=== PATIENT | female | born 1935 | race Hispanic/Latino ===

== ENCOUNTER 2020-05-28 14:45 | Outpatient (CLI) | payer MEDICARE ==
--- NOTE | 2020-05-28 16:16 | Mammography Report ---
LEFT DIAGNOSTIC MAMMOGRAM INDICATION: Status post biopsy of left subareolar breast mass. COMPARISON: Outside imaging performed 05/13/2019. FINDINGS: Left breast CC and LM projection mammograms were obtained. These demonstrate accurate location of a U -shaped biopsy marker within a slightly superior subareolar breast mass which is decreased in size st atus post biopsy and aspiration. IMPRESSION: Appropriate location of U shaped biopsy marker within the left slightly superior subareolar breast st atus post ultrasound-guided core biopsy and aspiration. BI-RADS Category 4: Suspicious for Malignancy. Signer Name: Fabien Krishnan MD Signed: 05/28/2020 4:12 PM Workstation Name: [id number]
--- NOTE | 2020-05-30 12:23 | Ultrasound Report ---
ULTRASOUND-GUIDED CORE NEEDLE BIOPSY LEFT BREAST WITH CLIP PLACEMENT INDICATION: Left breast lesion is noted on outside imaging COMPARISON: Outside imaging performed 05/13/2019. FINDINGS: NOTE: The outside imaging noted two separate areas in the left breast at the 12:00 and 8:00 subareola r location. On current images, this appears to represent a single lesion measuring up to 1.9 x 1.6 x 1.7 cm. It contains complex fluid which layers within the dependent portion of this collection. There is a raised portion overlying the skin and the appearance is suggestive of an inflamed/infected Augustus gomery gland cyst. Therefore, fine-needle aspiration for microbiology assessment as well as ultrasoun d-guided core biopsy will be performed. Additionally, a targeted ultrasound of the left axilla was pe rformed and shows no suspicious lymph nodes. Cortical thickness is within normal limits measuring up to 2.7 mm. Informed consent was obtained. The lesion within the left subareolar breast at the 12:00 position was identified with ultrasound. The overlying skin was cleansed with chloro prep and local anesthesia wa s obtained with a 1% lidocaine solution. Utilizing an 18-gauge needle, aspiration was performed. A to ramiro of 3 mL of bloody material was returned. Under ultrasound guidance a 14-gauge spring loaded core biopsy needle was advanced to the lesion. A total of 4 core samples were obtained. A U-shaped biopsy marker was placed to [place] the site of the biopsy. Specimen samples were placed in formalin and sent t o pathology for analysis. Patient tolerated the procedure well and no immediate complications were identified. A post procedure mammogram demonstrates accurate placement of the biopsy marker. IMPRESSION: Technically successful ultrasound-guided core biopsy and fine-needle aspiration of complex collection within the left breast at the 12:00 subareolar location. Accurate placement of a U-shaped biopsy mar ker. Samples were sent for cytology as well as microbiology assessment. An addendum will be added to this report once pathology results are available. Signer Name: Fabien Krishnan MD Signed: 05/28/2020 4:17 PM Workstation Name: [id number]
== END 2020-05-28 14:46 | disposition home or self-care (01) ==
LOC: SPVWC 14:45
PROVIDERS: ATTEND Surgery
DX: N63.21 Unspecified lump in the left breast, upper outer quadrant (principal); N64.89 Other specified disorders of breast
CPT/HCPCS: 87116; 88112; 88305